=== PATIENT | male | born 1965 | race American Indian/Alaskan Native ===

== ENCOUNTER 2022-10-24 21:21 | Emergency (ER) | payer BC, OTHER ==
[~2022-10-24] VITALS: Ht 177.8 cm; Wt 84.3 kg
[2022-10-24] MEDS ORDERED: ONDANSETRON 4MG 2ML VIAL IV ONE (22:10)
[2022-10-24] MEDS ORDERED: MORPHINE 4 MG/ML 1ML VIAL IV ONE (22:10)
[2022-10-24 22:40] LABS: BASO # 0.1 10^3/uL (0.0-0.2); BASO % 0.4 % (0.0-1.0); EOS # 0.1 10^3/uL (0.0-0.5); EOS % 0.4 % (0.0-3.0); HEMATOCRIT 50.2 % (42.0-52.0); HEMOGLOBIN 17.1 g/dl (13.5-17.5); LYMPH % 5.9 % (24.0-44.0); MEAN CORPUSCULAR HEMOGLOBIN 29.8 pg (27.0-33.0); MEAN CORPUSCULAR HGB CONC 34.1 g/dl (32.0-36.5); MEAN CORPUSCULAR VOLUME 87.5 fl (80.0-96.0); MONO # 0.6 10^3/uL (0.0-0.8); MONO % 3.7 % (2.0-8.0); NEUTROPHILS # 14.3 10^3/uL (1.5-8.5); NEUTROPHILS % 89.1 % (36.0-66.0); PLATELET COUNT, AUTOMATED 201 10^3/uL (150-450); RED BLOOD COUNT 5.74 10^6/uL (4.30-6.10)
[2022-10-24 23:00] LABS: LIPASE 34 U/L (12-53)
[2022-10-24 23:01] LABS: C REACTIVE PROTEIN QUANTITATIV < 0.40 MG/DL (<1.0)
[2022-10-24 23:02] LABS: ALBUMIN 4.5 G/DL (3.2-5.2); ALKALINE PHOSPHATASE 81 U/L (46-116); ALT/SGPT 29 U/L (7.0-40); AST/SGOT 24 U/L (<34); BILIRUBIN,TOTAL 0.8 MG/DL (0.3-1.2); BLOOD UREA NITROGEN 17 MG/DL (9-23); CALCIUM LEVEL 9.7 MG/DL (8.5-10.1); CARBON DIOXIDE LEVEL 26 MMOL/L (20-31); CHLORIDE LEVEL 104 MMOL/L (98-107); CREATININE FOR GFR 0.71 MG/DL (0.70-1.30); GLOMERULAR FILTRATION RATE > 60.0 (>56); GLUCOSE, FASTING 148 MG/DL (60-100); SODIUM LEVEL 139 MMOL/L (136-145); TOTAL PROTEIN 7.3 G/DL (5.7-8.2)
[2022-10-24] MEDS ORDERED: ISOVUE-370 76% 100ML VIAL As Ordered ONE (23:18)
[2022-10-25] MEDS ORDERED: FLEETOIL PR (01:07)
[2022-10-25] MEDS ORDERED: META0.52 PO (01:07)
[2022-10-25] MEDS ORDERED: CIPR-249 PO (01:14)
[2022-10-25] MEDS ORDERED: FLAG375C PO (01:14)
[2022-10-25 01:47] VITALS: BP 156/90
== END 2022-10-25 01:58 | disposition home or self-care (01) ==
LOC: M ED 21:21
DX: K59.00 Constipation, unspecified (principal); F41.9 Anxiety disorder, unspecified; Z87.19 Personal history of other diseases of the digestive system; Z90.89 Acquired absence of other organs; Z79.899 Other long term (current) drug therapy
CPT/HCPCS: 74177; 80053; 83605; 83690; 85025; 86140; 87040; 96374; 96375; 99283; J2270; J2405